=== PATIENT | male | born 1970 | race Caucasian/White ===

== ENCOUNTER 2016-10-29 15:26 | Emergency (ER) | payer SELFPAY ==
[2016-10-29 13:27] LABS: WBC (NOT ORDERED) (RFLEX) 0 (0-5)
[2016-10-29 13:32] LABS: BASOPHILS 0.3 %; BASOPHILS ABSOLUTE 0.03 10/3/uL (0.0-0.16); EOSINOPHILS 1.2 %; EOSINOPHILS ABSOLUTE 0.14 10/3/uL (0.0-0.53); HEMOGLOBIN 16.8 g/dL (13.6-17.8); IMMATURE GRANULOCYTES ABSOLUTE 0.23 10/3/uL (0.0-0.11); LYMPHOCYTES 19.5 %; LYMPHOCYTES ABSOLUTE 2.26 10/3/uL (0.67-4.30); MEAN CORPUS HGB CONC 37.1 g/dL (32.0-36.0); MEAN CORPUSCULAR HEMOGLOB 32.9 pg (26.0-34.0); MEAN CORPUSCULAR VOLUME 88.8 fL (80-100); MEAN PLATELET VOLUME 12.1 fL (9.2-13.0); MONOCYTES 4.3 %; NEUTROPHILS 72.7 %; NEUTROPHILS ABSOLUTE 8.41 10/3/uL (2.02-8.40); RBC DISTRIBUTION WIDTH 12.6 % (12.0-16.0)
[2016-10-29 13:33] LABS: ER CBC TAT 0 Hrs 07 MinsNP; HEMATOCRIT 46.4 % (40.0-51.0); MANUAL DIFF NO %; PLATELET COUNT 151 10/3/uL (150-400); WHITE BLOOD CELLS 11.6 10/3/uL (4.5-10.5)
[2016-10-29 13:36] LABS: ASCORBIC ACID (UR NOT ORDER) NEG (NEG); BILIRUBIN, URINE NEGATIVE (NEG); ER URINALYSIS TAT 0 Hrs 10 Mins; KETONE, URINE NEGATIVE (NEG); LEUKOCYTE ESTERASE(NOT OR NEG (NEG); NITRITE (URINE) NEG (NEG)
[2016-10-29 13:48] LABS: A/G RATIO 1.1 (0.7-1.9); ALBUMIN 3.8 G/DL (3.5-5.0); BUN (BLOOD UREA NITROGEN) 15 MG/DL (6-23); CALCIUM, SERUM 9.4 MG/DL (8.5-10.4); CHLORIDE, SERUM 102 MMOL/L (96-112); CO2 (CARBON DIOXIDE) 26 MMOL/L (24-34); CREATININE 0.91 MG/DL (0.70-1.30); GFR AFRICAN AMERICAN 119 ML/MIN (>=60); GFR NON AFRICAN AMERICAN 103 ML/MIN (>=60); GLOBULIN 3.6 G/DL (2.5-4.1); GLUCOSE, SERUM 149 MG/DL (60-99); SGOT(AST) 18 U/L (5-40); SGPT(ALT) 47 U/L (5-65); SODIUM, SERUM 137 MMOL/L (135-148); TOTAL BILIRUBIN 0.4 MG/DL (0-1.2); TOTAL PROTEIN 7.4 G/DL (6.0-8.5)
[2016-10-29 13:49] LABS: ALKALINE PHOSPHATASE 100 U/L (45-117)
[~2016-10-29 15:26] MED LIST: ASAB PO; CARDCD120 PO; GLUCPH PO; HYZAAR 100/25 T1 TAB PO; LIPITOR40 PO; LOP25 PO; PRILOSEC OTC20 MG PO
[2017-03-19] MEDS ORDERED: HYZAAR 100/25 T1 TAB PO (22:18)
[2017-03-19] MEDS ORDERED: NORV5 PO (22:19)
[2017-03-19] MEDS ORDERED: LOP25 PO (22:19)
[2017-03-19] MEDS ORDERED: LIPITOR40 PO (22:20)
[2017-03-19] MEDS ORDERED: NOVOLOG SC (22:21)
[2017-03-19] MEDS ORDERED: BASAGLAR K100 UNIT/1 SC (22:21)
[2017-03-19] MEDS ORDERED: CENTRUM PO (22:22)
[2017-03-19] MEDS ORDERED: ASAB PO (22:22)
[2017-03-20] MEDS ORDERED: IMDUR120 PO (14:56)
== END 2016-10-29 17:50 | disposition home or self-care (01) ==
LOC: ER 15:26
PROVIDERS: Emergency Medicine
DX: R10.12 Left upper quadrant pain (principal); R11.2 Nausea with vomiting, unspecified; F17.200 Nicotine dependence, unspecified, uncomplicated; I10 Essential (primary) hypertension; Z87.442 Personal history of urinary calculi; E11.9 Type 2 diabetes mellitus without complications; Z79.899 Other long term (current) drug therapy; Z79.84 Long term (current) use of oral hypoglycemic drugs; Z79.82 Long term (current) use of aspirin
CPT/HCPCS: 74176; 80053; 81001; 82962; 83690; 85025; 96374; 99284; J2765